=== PATIENT | female | born 1980 | race American Indian/Alaskan Native ===

== ENCOUNTER 2017-08-08 08:47 | Inpatient (IN) | payer BC ==
--- NOTE | 2017-08-08 10:02 | Anesthesia Consultation ---
Anesthesia Consult and Med Hx Date of service: 08/08/17 - Airway Anesthetic Teeth Evaluation: Good ROM Head & Neck: Adequate Mental/Hyoid Distance: Adequate Mallampati Class: Class I Intubation Access Assessment: Good - Pulmonary Exam CTA: Yes - Cardiac Exam Cardiac Exam: RRR - Pre-Operative Health Status ASA Pre-Surgery Classification: ASA3 Proposed Anesthetic Plan: General - Pulmonary Hx Sleep Apnea: No (snores ) - Central Nervous System Hx Back Pain: Yes (arthritis, sciatic) Hx Psychiatric Problems: Yes - Gastrointestinal Hx Gastroesophageal Reflux Disease: Yes (with food, no meds) - Hematic Hx Anemia: Yes (Hx Iron infusions, last 06/2017) - Other Systems Hx Alcohol Use: Yes (occas) Hx Cancer: No Hx Obesity: Yes
[2017-08-08 10:31] LABS: Hematocrit 40.1 % (30.3-42.9); Hemoglobin 13.1 gm/dl (10.1-14.3); Mean Corpuscular HGB Conc 33 % (30-34); Mean Corpuscular Hemoglobin 28 pg (28-32); Mean Corpuscular Volume 85 fl (79-97); Platelet Count 263 K/mm3 (140-440); Red Blood Count 4.74 M/mm3 (3.65-5.03); White Blood Count 6.8 K/mm3 (4.5-11.0)
[2017-08-08 10:38] LABS: Red Cell Distribution Width 25.2 % (13.2-15.2)
[2017-08-08 11:36] LABS: Anisocytosis 1+; Basophils % (Manual) 0 % (0.0-1.8); Blastocytes % (Manual) 0 %; Diff Status Complete; Eosinophils % (Manual) 0 % (0.0-4.3); Giant Platelets Few; Hypochromasia Few; Large Platelets Few; Poikilocytosis 1+; Stomatocytes Few; Target Cells Few
--- NOTE | 2017-08-09 20:41 | History and Physical Report ---
History of Present Illness Date of examination: 08/03/17 Chief complaint: Menorrhagia, fibroids, history of anemia History of present illness: Past History : 4 Term Births: 2 Living Children: 2 Prev : 2 Elect. Ab: 1 Spont. Ab: 1 # 1 Delivery date: 2003 Delivery type: # 2 Delivery type: CONSULTING INTERN History Operations: C-sectionx2 Tubal Ligation D&C: Abnormal PAP: positive Uterine Anomaly: positive fibroids Infection History HIV Risk Eval: no Hx of STD: None Active Medications (reviewed today): IBUPROFEN 800 MG ORAL TABLET (IBUPROFEN) 1 po TID (PRN) OXYCODONE-ACETAMINOPHEN 5-325 MG ORAL TABLET (OXYCODONE-ACETAMINOPHEN) 1-2po q6h IRON TABLET EXTENDED RELEASE (FERROUS FUMARATE CR-TABS) TRANEXAMIC ACID 650 MG ORAL TABLET (TRANEXAMIC ACID) 1300 mg(2 tabs) 3 times daily (3900 mg daily) for up to 5 days during monthly menstruation CYCLOBENZAPRINE HCL TABLET (CYCLOBENZAPRINE HCL TABS) NAPROXEN 500 MG ORAL TABLET (NAPROXEN) Current Allergies (reviewed today): No known allergies Past Medical History: Reviewed history from 04/06/2017 and no changes required: Back pain: mild lower lumbar arthropathy with mild left L4-L5 foraminal narrowing Anemia Vitamin D deficiiency Past Surgical History: Reviewed history from 04/06/2017 and no changes required: C-sectionx2 Tubal Ligation D&C: Family History Summary: Reviewed history and no changes required: 08/09/2017 Uncle - Has Family History of Brain Cancer - Entered On: 04/06/2017 Father (biol.) - Has Family History Colon Cancer - dx'd age 37, 42yo - Entered On: 04/06/2017 PGM - Has Family History Colon Cancer - dx'd age 42 - Entered On: 04/06/2017 Other family member - Has No Family History of Biliary Tract Cancer - Entered On : 04/06/2017 Other family member - Has No Family History of DVT/PE on OCP - Entered On: 2016 Other family member - Has No Family History of Kidney/Urinary Tract Cancer - Entered On: 04/06/2017 Other family member - Has No Family History of Ovarvian Cancer - Entered On: Other family member - Has No Family History of Pancreatic Cancer - Entered On: Other family member - Has No Family History of Stomach Cancer - Entered On: 04/06 Other family member - Has No Family History of Small Bowel Cancer - Entered On: 04/06/2017 Other family member - Has No Family History of Uterine Cancer - Entered On: 04/06 General Comments - FH: Paternal aunt leukemia MGM stomach cancer Social History: Reviewed history from 04/06/2017 and no changes required: Patient is Smoking History: Patient has never smoked. Risk Factors: PAP Smear History: Date of Last PAP Smear: 04/06/2017 Previous Tobacco Use: Signed On 07/11/2017 Smoked Tobacco Use: Never smoker Smokeless Tobacco Use: Never Passive smoke exposure: no Drug use: no HIV high-risk behavior: no Previous Alcohol Use: Signed On 07/11/2017 Alcohol use: yes Type: occ Drinks per day: social Exercise: yes Seatbelt use: 100 % PAP Smear History: Date of Last PAP Smear: 04/06/2017 Review of Systems General Denies fever, chills, sweats, anorexia, fatigue, weakness, malaise, weight loss and sleep disorder. Complains of menorrhagia. Denies vaginal discharge, incontinence, dysuria, hematuria, urinary frequency, amenorrhea, abnormal vaginal bleeding, pelvic pain, genital sores, decreased libido, painful periods, painful sex, urinary urgency, hot flashes, vaginal dryness, vaginal itching and vaginal odor. CV Denies chest pains, palpitations, syncope, dyspnea on exertion, orthopnea, PND and peripheral edema. Resp Denies cough, dyspnea at rest, excessive sputum, hemoptysis, wheezing and pleurisy. GI Denies nausea, vomiting, diarrhea, constipation, change in bowel habits, abdominal pain, melena, hematochezia, jaundice, gas/bloating, indigestion/ heartburn, dysphagia and odynophagia. Endo Denies cold intolerance, heat intolerance, polydipsia, polyphagia, polyuria and unusual weight change. Breast Denies left breast lump, right breast lump, nipple discharge, bloody discharge from nipple, breast pain, abnormal mammogram and breast enlargement. MS Denies back pain, joint pain, joint swelling, muscle cramps, muscle weakness, stiffness, arthritis, sciatica, restless legs, leg pain at night and leg pain with exertion. Derm Denies rash, itching, dryness and suspicious lesions. Neuro Denies paralysis, paresthesias, headache, seizures, tremors, vertigo, transient blindness, frequent falls, frequent headaches and difficulty walking. Psych Denies depression, anxiety, irritability and mood swings. Eyes Denies blurring, diplopia, irritation, discharge, vision loss, eye pain and photophobia. ENT Denies earache, ear discharge, tinnitus, decreased hearing, nasal congestion, nosebleeds, sore throat and hoarseness. Allergy Denies urticaria, allergic rash, hay fever and recurrent infections. Heme Denies abnormal bruising, bleeding and enlarged lymph nodes. Physical Exam Other Exams Breast exam: no masses or nipple discharge Lungs: no rales, rhonchi, or wheezes Heart: S1, S2, no murmur, rub, or gallop Abdomen: soft, non-tender, obese. Mass Skin: no ulcers, xanthomas Extremities: normal alignment, no joint enlargement, crepitus, masses or tenderness; normal tone and strength Genitourinary Exam Vulva: normal, no lesions or discharge Urethral meatus: normal size and location, no lesions or discharge Urethra: no discharge Vagina: normal appearance, no discharge, lesions. No evidence of cystocele or rectocele. Cervix: normal appearance, no lesions, no discharge Uterus: enlarged Adnexa: unable to palpate due to obesity and masses Impression & Recommendations: Problem # 1: Menorrhagia (ICD-626.2) (EJM24-B95.0) Diagnosis explained to patient . Questions answered. Discussed with patient various medical and surgical therapies common for treatment: Hormonal/medical therapy,endometrial ablation or hysterectomy. She desires to proceed with hysterectomy Consent reviewed and signed .Exploratory laparotomy explained to patient. The risks and alternatives for this surgery were reviewed with the patient. She was informed of possible bleeding, infection, injury to bowel, bladder, ureters or other adjacent organs. She desires ovarian conservation. She was informed she may require surgery later to have her ovaries removed for a benign or mailgnant condition. The patient was instructed/informed the following: The normal length of hospital stay for this procedure. Nothing to eat or drink after midnight the evening prior to surgery. Clear liquids the day before surgery. Fleets enema the day prior to surgery. Pre-op instruction sheets given. Wound care instructions given. Infection precautions reviewed, patient to call for any signs or symptoms of infection. The usual discomforts associated with this procedure were detailed. Proper use of pain medicines was reviewed. Patient was given ample opportunity to have all her questions answered before signing informed consent. Problem # 2: Fibroids of uterus; Intramural (ICD-218.1) (YZW05-V72.1) Diagnosis explained to patient . Questions answered. 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 Testing offered. Questions answered. She is aware she may be at increased risk for ovarian cancer however declines counseling or testing prior to hysterectomy. Medications Added to Medication List This Visit: 1) Ibuprofen 800 Mg Oral Tablet (Ibuprofen) .... 1 po tid (prn) 2) Oxycodone-acetaminophen 5-325 Mg Oral Tablet (Oxycodone-acetaminophen) .... 1-2po q6h Prescriptions: IBUPROFEN 800 MG ORAL TABLET (IBUPROFEN) 1 po TID (PRN) #30 x 1 Entered and Authorized by: Amber Mckeon MD Method used: Print then Give to Patient RxID: [id number] OXYCODONE-ACETAMINOPHEN 5-325 MG ORAL TABLET (OXYCODONE-ACETAMINOPHEN) 1-2po q6h #30 x 0 Entered and Authorized by: Amber Mckeon MD Method used: Print then Give to Patient RxID: [id number] Medications and Allergies Allergies Allergy/AdvReac Type Severity Reaction Status Date / Time No Known Allergies Allergy Unverified 08/06/17 17:48 Home Medications Medication Instructions Recorded Confirmed Last Taken Type Cyclobenzaprine [Flexeril] 10 mg PO TID PRN 08/06/17 08/06/17 Unknown History Naproxen [Naproxen] 1 tab PO PRN PRN 08/06/17 08/06/17 Unknown History Exam Vital Signs Temp Pulse Resp BP 98.7 F 80 16 129/88 08/08/17 09:15 08/08/17 09:15 08/08/17 09:15 08/08/17 09:15 Results - Labs 08/08/17 09:25 Assessment and Plan - Patient Problems (1) Menorrhagia Status: Acute Qualifiers: Menorrahagia type: with regular cycle Qualified Code(s): N92.0 - Excessive and frequent menstruation with regular cycle (2) Fibroid Status: Chronic Qualifiers: Uterine leiomyoma location: intramural, submucous, and subserous Qualified Code(s): D25.1 - Intramural leiomyoma of uterus; D25.0 - Submucous leiomyoma of uterus; D25.0 - Submucous leiomyoma of uterus; D25.2 - Subserosal leiomyoma of uterus; D25.2 - Subserosal leiomyoma of uterus (3) Adult BMI 45.0-49.9 kg/sq m Status: Chronic
[2017-08-10] MEDS ORDERED: NEURONTIN PO NR (08:00)
[2017-08-10] MEDS ORDERED: VERSED IV NR (08:00)
[2017-08-10] MEDS ORDERED: NACL 0.9% 1000 ML 1,000 ML IV SCH (08:00)
[2017-08-10] MEDS ORDERED: PEPCID PO NR (08:00)
[2017-08-10] MEDS ORDERED: ANCEF/STERILE WATER 2 GM/20 ML 2 GM/20 ML SYRINGE IV NR (08:00)
[2017-08-10] MEDS ORDERED: DIPRIVAN 10 MG/ML IV ONE (12:40)
[2017-08-10] MEDS ORDERED: DECADRON ONE (12:40)
[2017-08-10] MEDS ORDERED: ZEMURON IV ONE ×2 (12:40→15:23)
[2017-08-10] MEDS ORDERED: DILAUDID ONE (12:40)
[2017-08-10] MEDS ORDERED: XYLOCAINE MPF 2% ONE (12:40)
[2017-08-10] MEDS ORDERED: ZOFRAN ONE (12:40)
[2017-08-10] MEDS ORDERED: SUBLIMAZE ONE (12:40)
[2017-08-10] MEDS ORDERED: ROBINUL ONE ×2 (12:40)
[2017-08-10] MEDS ORDERED: NEOSTIGMINE ONE (12:40)
--- NOTE | 2017-08-10 12:44 | Anesthesia Day of Surgery ---
Anesthesia Day of Surgery - Day of Surgery Patient Examined: Yes Patient H&P Reviewed: Yes Patient is NPO: Yes
[2017-08-10] MEDS ORDERED: ACD-A 500 ML IV ONE (13:51)
[2017-08-10] MEDS ORDERED: CALCIUM CHLORIDE IV ONE (13:51)
[2017-08-10] MEDS ORDERED: THROMBIN (BOVINE) TP ONE (13:52)
[2017-08-10] MEDS ORDERED: NACL 0.9% 1000 ML 1,000 ML ONE ×2 (14:02→15:07)
[2017-08-10] MEDS ORDERED: NEO SYNEPHRINE/NS Syringe(OR USE) IV ONE (14:10)
[2017-08-10] MEDS ORDERED: Vasostrict ONE (14:20)
[2017-08-10] MEDS ORDERED: NACL 0.9% 100 ML ONE (14:20)
[2017-08-10] MEDS ORDERED: Vasostrict IM ONE (15:29)
[2017-08-10] MEDS ORDERED: NACL 0.9% IR ONE (15:29)
[2017-08-10] MEDS ORDERED: MARCAINE 0.5% 30 ML INFILTRATI ONE (15:30)
[2017-08-10] MEDS ORDERED: NACL 0.9% IV ONE (15:30)
[2017-08-10] MEDS ORDERED: MARCAINE 0.5% INFILTRATI ONE (15:34)
[2017-08-10] MEDS ORDERED: LACTATED RINGERS 1,000 ML ONE (15:52)
[2017-08-10] MEDS ORDERED: TORADOL ONE (16:11)
[2017-08-10] MEDS ORDERED: DILAUDID IV PRN (16:16)
[2017-08-10] MEDS ORDERED: ZOFRAN IV PRN ×2 (16:16→18:32)
[2017-08-10] MEDS: MORPHINE IV PRN ×2 (16:28→16:50)
--- NOTE | 2017-08-10 18:25 | Operative Report ---
Operative Report Operative Report: Date: 08/10/2017 Preoperative diagnosis: 1. Menorrhagia 2. Uterine fibroids Postoperative diagnosis: 1. Menorrhagia 2. Uterine fibroids Procedure: 1. Supracervical abdominal hysterectomy 2. Bilateral salpingectomy Surgeon: Amber Mckeon MD Demand Planning Manager: Neno Alatorre Anesthesiologist: Reji Obando M.D. Anesthesia: General anesthesia EBL: 350mL Findings: Exam under anesthesia revealed the uterus to be large extended to the right upper abdomen. Patient was noted to have enlarged uterus multiple uterine fibroids. Filshie clips were noted on the fallopian tubes otherwise the tubes appeared to be normal. Grossly normal ovaries noted. Procedure: After risk, benefits, complications, consequences and alternatives for this procedure were discussed with the patient and she voiced her understanding and desire to proceed, she was taken to the OR and placed in the supine position. General anesthesia was induced. A Monroy catheter was introduced into her bladder. She was then prepped and draped in the usual sterile fashion. Timeout was performed. A Pfannenstiel incision was made and extended to the fascia which was incised and extended lateral direction. The overlying fascia was sharply dissected away from the underlying rectus muscles in the superior inferior direction. The midline was entered with both blunt and sharp dissection. The uterus was then elevated through the incision. The O 'Juan O'Jain self retaining retractor was placed. The bowel was then placed in the upper abdomen and secured in place with the abdominal blade of the retractor. The bladder blade was then placed. Bilateral salpingectomy was performed. Each tube was sent to pathology in a separate container. The round ligaments were then clamped cut and suture ligated bilaterally. With both blunt and sharp dissection the bladder flap was created. Attention was turned to the broad ligament, where the the utero-ovarian ligaments were both clamped cut and suture ligated bilaterally. Several fibroids were removed in the usual fashion for better visualization using Pitressin 20units in 100 mL's of normal saline, The uterine vessels were then skeletonized bilaterally. The uterine vessels were clamped bilaterally. . Attention was turned to or uterine segment with the bladder flap was further created. Then the uterine vessels were cut and suture ligated bilaterally. Again attention was turned to the anterior cervix with the bladder appeared to be away from the operative field.. The cardinal ligaments were clamped cut and suture ligated bilaterally. The uterus with the internal cervical os was then amputated for better visualization. The cervix was grasped single-toothed tenaculum and elevated. However it was quite difficult palpating the external cervix. At this point it was difficult to further dissecting the bladder away from the cervix therefore the decision was made to perform a supracervical hysterectomy. The remainder of the cervix was elevated, clamped and excised. This segment of cervix was sent to pathology with the uterus and fibroids. The edges of the incision were ligated with a Vy stitch of 0 Vicryl. The midline was closed using 0 Vicryl in 2 interrupted [id number] stitches. The pelvis was then irrigated copiously with warm normal saline. The ureters were noted to be peristaltic and away from the operative field. Platelet rich plasma was applied to the operative field. Then platelet poor plasma was applied to the operative field. Again hemostasis was noted. The bladder and abdominal blades were removed. Laparotomy sponges were removed. Counts were correct 3. The remainder of the platelet poor plasma was applied to the abdomen. The rectus muscles were approximated using 0 Vicryl in 3 interrupted simple stitches of 0 Vicryl. Once hemostasis was noted the fascia was reapproximated from distal to midline using 0 Vicryl in a simple running stitch. Adipose tissue was reapproximated using 0 Vicryl interrupted stitch fashion. The skin incision was approximated using 4-0 Monocryl in a subcuticular manner. Patient tolerated procedure well. Exam revealed external os still present. Patient was taken to recovery room in stable condition additional drainage clearly urine through Monroy catheter.
[2017-08-10] MEDS ORDERED: PERCOCET 5/325 PO PRN (18:32)
[2017-08-10] MEDS ORDERED: MORPHINE IV PRN (18:32)
[2017-08-10] MEDS ORDERED: REGLAN PO PRN (18:32)
[2017-08-10] MEDS ORDERED: TYLENOL PR PRN (18:32)
[2017-08-10] MEDS ORDERED: ANCEF/NS 1 GM/50 ML 1 GM/50 ML BAG IV SCH (18:32)
[2017-08-10] MEDS ORDERED: ZOFRAN PO PRN (18:32)
[2017-08-10] MEDS ORDERED: REGLAN IV PRN (18:32)
[2017-08-10] MEDS ORDERED: NARCAN 0.4 MG/1 ML IV PRN (18:32)
--- NOTE | 2017-08-10 19:22 | Post Anesthesia Evaluation ---
- Post Anesthesia Evaluation Patient Participated: Yes Airway Patent: Yes Stable Respiratory Function: Yes Nausea/Vomiting: No Temp > 96.8F: Yes Pain Manageable: Yes Adequeate Hydration: Yes Anesthesia Complications: No Block Receding Appropriately: Not Applicable Patient on Ventilator: No
--- NOTE | 2017-08-10 19:40 | Event Note ---
Date: 08/10/17 Patient resting in bed with family presen. Operative findings and procedure explained. Questions answered. Plan of care discussed. Discharge instructions given: 1. Ambulate approximately 1 mile on your property a day 2. Drink approximately 120 ounces of water a day 3. Eat small meals frequently a day 4. Void frequently to keep bladder emptying 5. Use incentive spirometer every hour while awake. 6. No sex 7. No driving. Patient voiced understanding and agrees with plan of care.
[2017-08-10] MEDS: LACTATED RINGERS 1,000 ML IV SCH (21:14)
[2017-08-10] MEDS: TORADOL IV SCH (22:08)
[2017-08-10] MEDS: PEPCID IV SCH (22:09)
[2017-08-11] MEDS: TORADOL IV SCH ×2 (01:55→13:35)
[2017-08-11] MEDS: TYLENOL PO SCH ×3 (01:57→18:25)
[2017-08-11] MEDS: ceFAZolin 1 GM in NACL 0.9% 20 ML IV SCH ×4 (01:58→22:15)
[2017-08-11 04:49] LABS: Hematocrit 38.5 % (30.3-42.9); Hemoglobin 12.3 gm/dl (10.1-14.3); Mean Corpuscular HGB Conc 32 % (30-34); Mean Corpuscular Hemoglobin 27 pg (28-32); Mean Corpuscular Volume 86 fl (79-97); Platelet Count 280 K/mm3 (140-440); White Blood Count 12.6 K/mm3 (4.5-11.0)
[2017-08-11] MEDS: LACTATED RINGERS 1,000 ML IV SCH ×3 (04:51→20:41)
[2017-08-11 04:52] LABS: Red Cell Distribution Width 24.1 % (13.2-15.2)
[2017-08-11] MEDS: MORPHINE IV PRN ×3 (04:56→14:41)
[2017-08-11] MEDS: PEPCID IV SCH ×2 (10:49→22:14)
--- NOTE | 2017-08-11 11:35 | Progress Note ---
Assessment and Plan - Patient Problems (1) Status post abdominal supracervical subtotal hysterectomy Current Visit: Yes Status: Acute Plan to address problem: Postoperative day #1. Discuss operative findings with patient and questions answered. Patient without fever. We'll ambulate in halls. We will continue routine postoperative care. Patient's postoperative hematocrit 38.5% Subjective Date of service: 08/11/17 Patient Reports: Positive: feels better, still having pain, pain is less, tolerating liquids well, flatus, no bowel movement, afebrile (Monroy just removed ) Objective Vital Signs - 12hr 08/11/17 08/11/17 08/11/17 00:00 01:55 01:57 Temperature 98.1 F Pulse Rate 111 H Respiratory 18 19 19 Rate Blood Pressure Blood Pressure 122/75 [Right] O2 Sat by Pulse 98 Oximetry 08/11/17 08/11/17 08/11/17 04:30 04:56 08:30 Temperature 98.0 F 97.4 F L Pulse Rate 95 H 79 Respiratory 18 19 18 Rate Blood Pressure 148/76 Blood Pressure 122/59 [Right] O2 Sat by Pulse 94 Oximetry - General physical appearance well developed, well nourished - Respiratory normal expansion, normal respiratory effort - Abdomen soft, tender (appropriately tender), wound (bandages clean and dry) - Integumentary no rash, no growths, no abnormal pigmentation - Neurologic normal coordination, normal sensation - Psychiatric oriented to time, oriented to person, oriented to place, speech is normal, memory intact - Labs 08/11/17 04:23
--- NOTE | 2017-08-12 08:10 | Discharge Summary ---
Providers - Providers Date of Admission: 08/10/17 10:49 Date of discharge: 08/12/17 Attending physician: ARTUR OVIEDO Primary care physician: CROW BERMUDEZ Hospitalization Reason for admission: symptomatic leiomyomata Condition: Good Procedures: Supracervical hysterectomy with bilateral salpingectomy Hospital course: Patient was admitted and underwent above procedure without complications. Her post operative course was benign she was afebrile throughout. Patient postoperative day 1 hematocrit was in an acceptable range. Patient had no orthostatic symptoms. Patient was tolerating regular diet and voiding without difficulty at time of discharge. Patient incision was healing well without evidence of infection. Disposition: DC-01 TO HOME OR SELFCARE - Discharge Diagnoses (1) Status post abdominal supracervical subtotal hysterectomy Status: Chronic Core Measure Documentation - Palliative Care Palliative Care/ Comfort Measures: Not Applicable - Core Measures Any of the following diagnoses?: none Exam - Constitutional Vitals: Temp Pulse Resp BP Pulse Ox 98.3 F 88 18 130/61 99 08/12/17 04:00 08/12/17 04:00 08/12/17 04:00 08/12/17 04:00 08/11/17 20:00 General appearance: Present: no acute distress - Respiratory Respiratory effort: normal - Cardiovascular Rhythm: regular - Extremities Extremities: no ischemia, No edema, Full ROM - Abdominal General gastrointestinal: Present: soft, tender (appropriately), other ( incision clean and dry healing well) Female genitourinary: Present: deferred - Rectal Rectal Exam: deferred - Integumentary Integumentary: Present: clear, warm, dry - Musculoskeletal Musculoskeletal: gait normal, strength equal bilaterally - Psychiatric Psychiatric: appropriate mood/affect, intact judgment & insight - Neurologic Neurologic: moves all extremities Plan Activity: advance as tolerated Diet: regular Wound: open to air Additional Instructions: Patient office for fever chills nausea vomiting or pain uncontrolled by pain relief. Patient instructed no heavy lifting 6 weeks. No sex for 6 weeks. Patient to keep her postoperative appointment as scheduled Follow up with: CROW BERMUDEZ MD [Primary Care Provider] - 7 Days
[2017-08-12 09:06] VITALS: BP 112/77
== END 2017-08-12 10:20 | disposition home or self-care (01) | DRG 742 ==
LOC: 3A 08:47 → UNDOADMIN 08:47 → 3A 08-10 10:49 → OB 08-10 17:46
PROVIDERS: ADMIT Obstetrics & Gynecology; ATTEND Obstetrics & Gynecology
PROC: 0UT90ZL Resection of Uterus, Supracervical, Open Approach (ICD-10-PCS; principal; 2017-08-10)
PROC: 0UT70ZZ Resection of Bilateral Fallopian Tubes, Open Approach (ICD-10-PCS; 2017-08-10)
DX: D25.9 Leiomyoma of uterus, unspecified (principal); Z68.42 Body mass index [BMI] 45.0-49.9, adult; N92.0 Excessive and frequent menstruation with regular cycle; M54.40 Lumbago with sciatica, unspecified side; K21.9 Gastro-esophageal reflux disease without esophagitis; D64.9 Anemia, unspecified; E66.9 Obesity, unspecified; Z98.51 Tubal ligation status; Z80.0 Family history of malignant neoplasm of digestive organs; Z80.8 Family history of malignant neoplasm of other organs or systems; Z72.89 Other problems related to lifestyle
CPT/HCPCS: 36415; 81025; 85007; 85025; 85027; 86850; 86900; 86901; 88302; 88307; J0690; J1100; J1170; J1885; J2250; J2270; J2370; J2405; J2704; J2710; J3010; J7030; J7120